=== PATIENT | male | born 1955 | race Caucasian/White ===

== ENCOUNTER 2024-03-26 05:25 | Day surgery (SDC) | payer OTHER ==
[~2024-03-26] VITALS: Ht 165.1 cm; Wt 83.0 kg
[2024-03-26] MEDS ORDERED: ACETAMINOPHEN 500 MG TABLET ONE (05:40)
[2024-03-26] MEDS ORDERED: CELECOXIB 100 MG CAPSULE ONE (05:40)
[2024-03-26] MEDS ORDERED: oxyCODONE HCL 10 MG TAB.ER.12H PO ONE (05:43)
[2024-03-26] MEDS ORDERED: SCOPOLAMINE HYDROBROMIDE 1 MG PATCH .72 H (TRANSDERM-SCOP) TD ONE (05:43)
[2024-03-26] MEDS ORDERED: GABAPENTIN 300 MG CAPSULE ONE (05:44)
[2024-03-26] MEDS: ACETAMINOPHEN 500 MG TABLET PO SCH (06:08)
[2024-03-26] MEDS: SCOPOLAMINE HYDROBROMIDE 1 MG PATCH .72 H (TRANSDERM-SCOP) TD ONE (06:08)
[2024-03-26] MEDS: CELECOXIB 100 MG CAPSULE PO ONE (06:08)
[2024-03-26] MEDS: GABAPENTIN 300 MG CAPSULE PO ONE (06:08)
[2024-03-26] MEDS ORDERED: ONDANSETRON HCL 4 MG/2 ML VIAL ONE (07:00)
[2024-03-26] MEDS ORDERED: DEXAMETHASONE SOD PHOSPHATE 4 MG/ML VIAL ONE (07:00)
[2024-03-26] MEDS ORDERED: LR 1,000 ML IV.SOLN IV ONE (07:00)
[2024-03-26] MEDS: oxyCODONE HCL 10 MG TAB.ER.12H PO ONE (07:00)
[2024-03-26] MEDS ORDERED: ACETAMINOPHEN 500 MG TABLET PO ONE (07:00)
[2024-03-26] MEDS ORDERED: VANCOMYCIN HCL 1000 MG/VIAL IV ONE (07:00)
[2024-03-26] MEDS ORDERED: LACTULOSE 20 GM/30 ML UDC PO PRN (07:00)
[2024-03-26] MEDS ORDERED: TRANEXAMIC ACID 1,000 MG/10 ML VIAL ONE (07:00)
[2024-03-26] MEDS ORDERED: CEFAZOLIN SOD 2 GM in D5W 50 ML IV ONE (07:00)
[2024-03-26] MEDS ORDERED: NS 1000 ML IV.SOLN IV ONE (07:00)
[2024-03-26] MEDS ORDERED: fentaNYL CITRATE/PF 100 MCG/2 ML AMP ONE (07:00)
[2024-03-26] MEDS ORDERED: BUPIVACAINE /PF 0.25% 10 ML VIAL INJ ONE (07:00)
[2024-03-26] MEDS ORDERED: NS IRRIG SOLN 1000 ML IR ONE (07:00)
[2024-03-26] MEDS ORDERED: MIDAZOLAM HCL 2 MG/2 ML VIAL (VERSED) ONE (07:00)
[2024-03-26] MEDS ORDERED: DIPHENHYDRAMINE HCL 25 MG CAPSULE PO PRN (07:00)
[2024-03-26] MEDS ORDERED: BISACODYL 10 MG/SUPPOSITORY RC PRN (07:00)
[2024-03-26] MEDS ORDERED: METOCLOPRAMIDE HCL 10 MG/2 ML VIAL IVP PRN ×2 (07:00→07:45)
[2024-03-26] MEDS ORDERED: LR 1,000 ML IV SCH (07:45)
[2024-03-26] MEDS ORDERED: hydrALAZINE HCL 20 MG/ML VIAL IVP PRN (07:45)
[2024-03-26] MEDS ORDERED: MEPERIDINE HCL/PF 25 MG/ML DISP.SYRIN IVP PRN (07:45)
[2024-03-26] MEDS ORDERED: LABETALOL 100 MG/ 20ML VIAL IVP PRN (07:45)
[2024-03-26] MEDS ORDERED: HYDROmorphone 1 MG/ML INJ. CARTRIDGE IVP PRN ×5 (07:45→11:00)
[2024-03-26] MEDS ORDERED: TAMSULOSIN HCL 0.4 MG CAP PO SCH (09:00)
[2024-03-26] MEDS ORDERED: traMADol HCL HCL 50 MG TABLET (ULTRAM) PO PRN (11:00)
[2024-03-26] MEDS ORDERED: LORATADINE 10 MG TABLET PO PRN (11:00)
[2024-03-26] MEDS ORDERED: oxyCODONE HCL 5 MG TABLET PO PRN ×2 (11:00)
[2024-03-26] MEDS ORDERED: ceFAZolin SODIUM 2 GM in D5W 50 ML IV SCH (11:15)
[2024-03-26] MEDS ORDERED: ONDANSETRON HCL 4 MG/2 ML VIAL IVP PRN (11:45)
[2024-03-26] MEDS ORDERED: KETOROLAC TROMETHAMINE 10 MG TABLET (TORADOL) PO SCH (14:00)
[2024-03-26 14:56] VITALS: O2SAT 96
[2024-03-26 17:07] VITALS: BP_SYST 128; PULSE 85; RESP 16
[2024-03-26] MEDS ORDERED: SENNOSIDES/DOCUSATE SODIUM 1 TAB TABLET(SENOKOT-S) PO SCH (21:00)
[2024-03-27] MEDS ORDERED: ASPIRIN 81 MG TAB.CHEW PO SCH (09:00)
[2024-03-27] MEDS ORDERED: CELECOXIB 200 MG CAPSULE PO SCH (11:00)
== END 2024-03-26 13:00 | disposition home or self-care (01) ==
LOC: SDS 05:25 → SMU 05:25 → EDSTATUS 07:00 → SDS 13:00
PROVIDERS: ATTEND Student in an Organized Health Care Education/Training Program
DX: M17.11 Unilateral primary osteoarthritis, right knee (principal); M25.761 Osteophyte, right knee; M25.561 Pain in right knee; K21.9 Gastro-esophageal reflux disease without esophagitis; E66.9 Obesity, unspecified; Z68.30 Body mass index [BMI] 30.0-30.9, adult; Z98.890 Other specified postprocedural states
CPT/HCPCS: 87081; 27447; 97162; 64447; 73560; 97116; 88305; 88311; J3490 ×2; J0690; J0696; J1100; J3465; J2405; J3370; J3010; J7060 ×2; J7120; J7030; C1776 ×2; C1713 ×3